=== PATIENT | female | born 2000 | race Caucasian/White ===

== ENCOUNTER 2021-03-30 18:38 | Emergency (ER) | payer MEDICAID ==
[~2021-03-30] VITALS: Ht 152.4 cm; Wt 48.0 kg
[2021-03-30] MEDS ORDERED: ONDANSETRON HCL 4MG/2ML INJ IV STA (19:43)
[2021-03-30] MEDS ORDERED: SODIUM CHLORIDE 0.9% 1,000 ML IV ONE (19:45)
[2021-03-30 20:11] LABS: CLARITY URINE CLOUDY (CLEAR); COLOR URINE YELLOW (YELLOW); KETONES URINE 4+ (NEGATIVE); LEUKOCYTE ESTERASE URINE 2+ (NEGATIVE); NITRITE URINE NEGATIVE (NEGATIVE); OCCULT BLOOD URINE NEGATIVE (NEGATIVE); PH URINE 5.5 (4.5-8.0); PROTEIN URINE TRACE (NEGATIVE); SPECIFIC GRAVITY URINE 1.031 (1.005-1.030); UROBILINOGEN URINE 0.2 E.U./dL (0.2-1.0)
[2021-03-30 20:24] LABS: BASOPHILS % 0.4 % (0.0-2.0); EOSINOPHILS % 0.6 % (0.0-5.0); HEMATOCRIT. 39.3 % (36.0-48.0); LYMPHOCYTES % 19.6 % (20.0-50.0); MEAN CORPUSCULAR VOLUME 93.3 fL (81.0-99.0); MEAN PLATELET VOLUME 8.3 fl (7.4-10.4); NEUTROPHILS % 75.4 % (40.0-76.0); PLATELET 350 x1000/uL (130-400); RED BLOOD CELL COUNT 4.21 mill/uL (4.2-5.4); RED CELL DISTRIBUTION WIDTH 12.8 % (11.6-14.6)
[2021-03-30 20:36] LABS: CHLORIDE 106 mEq/L (98-107)
[2021-03-30] MEDS ORDERED: CEPH500T MT (21:46)
[2021-03-30] MEDS ORDERED: ONDA4TAB5 MT (21:46)
[2021-03-30 22:07] VITALS: BP 110/55
== END 2021-03-30 22:08 | disposition home or self-care (01) ==
LOC: ER 18:38
DX: N39.0 Urinary tract infection, site not specified (principal)
CPT/HCPCS: 36415; 80053; 81003; 81025; 83690; 85025; 96361; 96374; 99283; J2405; J7030

== ENCOUNTER 2023-02-01 22:44 | Emergency (ER) | payer MEDICAID, OTHER ==
[~2023-02-01] VITALS: Ht 152.4 cm; Wt 50.5 kg
[~2023-02-01 22:44] MED LIST: CEPH500T MT; ONDA4TAB5 MT
[2023-02-01 22:47] VITALS: BP 116/76; PULSE 82; RESP 16; TEMP 98; O2SAT 100
[2023-02-02] MEDS ORDERED: BACITRACIN ZINC OINT UDPKT TOP ONE (01:00)
[2023-02-02] MEDS ORDERED: LIDOCAINE HCL/PF 1% 10 MG/ML 5ML VIAL INFIL ONE (01:00)
[2023-02-02 01:06] LABS: CLARITY URINE CLEAR (CLEAR); COLOR URINE YELLOW (YELLOW); GLUCOSE URINE NEGATIVE (NEGATIVE); KETONES URINE NEGATIVE (NEGATIVE); LEUKOCYTE ESTERASE URINE NEGATIVE (NEGATIVE); NITRITE URINE NEGATIVE (NEGATIVE); OCCULT BLOOD URINE NEGATIVE (NEGATIVE); PH URINE 6.5 (4.5-8.0); PROTEIN URINE NEGATIVE (NEGATIVE); SPECIFIC GRAVITY URINE 1.015 (1.005-1.030); UROBILINOGEN URINE 0.2 E.U./dL (0.2-1.0)
[2023-02-02] MEDS ORDERED: ACETAMINOPHEN 325MG TABLET PO STA (01:13)
[2023-02-02] MEDS ORDERED: NAPR-681 PO (04:00)
[2023-02-02] MEDS ORDERED: HYDR-4001 MT (04:00)
[2023-02-11] MEDS ORDERED: MAG355OR21 MT (08:00)
[2023-02-11] MEDS ORDERED: FAMO-135 MT (08:00)
== END 2023-02-02 04:18 | disposition home or self-care (01) ==
LOC: ER 22:44
DX: S02.2XXA Fracture of nasal bones, initial encounter for closed fracture (principal); W18.39XA Other fall on same level, initial encounter; Y93.89 Activity, other specified; Y92.89 Other specified places as the place of occurrence of the external cause; Y99.8 Other external cause status
CPT/HCPCS: 99284; 81003; 81025; 12013; 70450; 70486; J3490